=== PATIENT | male | born 1975 | race African-American/Black ===

== ENCOUNTER 2018-10-23 21:30 | Emergency (ER) | payer OTHER ==
[~2018-10-23] VITALS: Ht 188 cm; Wt 79.4 kg
--- NOTE | ~2018-10-23 | EMS ---
[address] [address] EMS Patient Care Report Name: JAMA GAUTAM Room #: DEP ULISES Fernandez#: [id number] Admission: 10/23/18 Attend Phys: Discharge: 10/24/18 Date of : [birth year] Report #: [id number] THIS REPORT FOR: //name// Report Transmitted: 10/27/2018 08:08 EMS Care Summary [place], [place]/[facility] Incident [id number] @ 10/23/2018 21:06 Incident Location [address] [place] [address] Patient JAMA GAUTAM Male, 43 Years 1975 Patient Address [address] [place] [address] Patient History None Reported, Patient Allergies No known allergies, Patient Medications None Reported, Chief Complaint BACK PAIN Disposition Transported No Lights/[place] Dispatch Reason Back Pain (Non-Traumatic) Transported To [facility] Narrative Arrived on scene for a 43 y/o male that met us at the front door. Pt said that he is having lower back/flank pain. Pt has been having the pain for about 3 days now. Pt said that he went to [facility] days ago and the gave him a shot and some lidocaine patches and he said that it hasn't helped. [address] [address] EMS Patient Care Report Name: JAMA GAUTAM Room #: DEP ULISES Fernandez#: [id number] Admission: 10/23/18 Attend Phys: Discharge: 10/24/18 Date of : [birth year] Report #: [id number] See Pt Assessment Back/Flank pain See Flow Chart. Pt was able to walk to the cot. Transported non-emergent with zero change or incidents. Pt able to move himself from the cot to the triage chair. Transferred care to receiving facility. Initial Vitals @21:25P: 103,R: 18,BP: 136/66,Pain: 10/10,GCS: 15,Revised Trauma: 12, @21:17P: 110,R: 18,BP: 149/74,Pain: 10/10,GCS: 15,Revised Trauma: 12, Assessments @21:11MENTAL:Person Oriented,Time Oriented,Event Oriented,Place Oriented,SKIN:HEENT:Head/Face: No Abnormalities,Eyes: No Abnormalities,Neck/Airway: No Abnormalities,LUNG SOUNDS:General: No Abnormalities,Left Upper: No Abnormalities,Right Upper: No Abnormalities,Left Lower: No Abnormalities,Right Lower: No Abnormalities,ABDOMEN:General: No Abnormalities,Left Upper: No Abnormalities,Right Upper: No Abnormalities,Left Lower: No Abnormalities,Right Lower: No Abnormalities,PELVIS//GI:No Abnormalities,EXTREMITIES:Left Arm: No Abnormalities,Right Arm: No Abnormalities,Left Leg: No Abnormalities,Right Leg: No Abnormalities,PULSE:Radial: 2+ Normal,NEURO:No Abnormalities, Impression Back Pain Procedures @21:11ALS AssessmentResponse: Unchanged Timeline 21:04,Call Received 21:04,Dispatch Notified 21:06,Dispatched 21:07,En Route 21:10,On Scene 21:11,At Patient 21:11,ALS Assessment,Response: Unchanged 21:17,BP: 149/74 M,PULSE: 110,RR: 18 R,SPO2: Ox,ETCO2: ,BG: ,PAIN: 10,GCS: 15, 21:17,Depart Scene 21:25,BP: 136/66 M,PULSE: 103,RR: 18 R,SPO2: Ox,ETCO2: ,BG: ,PAIN: 10,GCS: 15, 21:28,At Destination 21:39,Call Closed Disclaimer [facility] [address] [place] [address] EMS Patient Care Report Name: JAMA GAUATM [facility] #: [facility] [id number] Admission: 10/23/18 Attend Phys: Discharge: 10/24/18 Date of : 77 Report #: [id number] Copyright 2019 [employer] This EMS Care Summary contains data elements from the applicable legal record (which may be displayed differently). It is designed to provide pertinent information for the following purposes: continuity of care, clinical quality, and state data reporting. The complete legal record is available to ED staff and administrators of the receiving hospital in [email or web address]'s Patient Tracker. All data is provided "as is."
[2018-10-23 22:26] LABS: URINE BILIRUBIN NEGATIVE (Negative); URINE BLOOD NEGATIVE (Negative); URINE CLARITY CLEAR; URINE COLOR YELLOW; URINE GLUCOSE-RANDOM* NEGATIVE (Negative); URINE KETONES NEGATIVE (Negative); URINE LEUKOCYTES-REFLEX NEGATIVE (Negative); URINE NITRITE-REFLEX NEGATIVE (Negative); URINE PROTEIN (DIPSTICK) NEGATIVE (Negative); URINE SPECIFIC GRAVITY 1.025 (1.005-1.035)
[2018-10-23] MEDS ORDERED: METHOCARBAMOL500 M2 PO (23:10)
[2018-10-23] MEDS ORDERED: NAPROSYN500 MG PO (23:10)
[2018-10-23] MEDS ORDERED: TRAMADOL 50 MG50 MG PO (23:10)
[2018-10-24 00:27] VITALS: BP 134/83
== END 2018-10-24 00:27 | disposition home or self-care (01) ==
LOC: ER 21:30
PROVIDERS: Emergency Medicine
DX: S39.012A Strain of muscle, fascia and tendon of lower back, initial encounter (principal); F17.210 Nicotine dependence, cigarettes, uncomplicated; W18.39XA Other fall on same level, initial encounter; Y93.89 Activity, other specified; Y92.89 Other specified places as the place of occurrence of the external cause; Y99.8 Other external cause status